=== PATIENT | female | born 1945 | race Caucasian/White ===

== ENCOUNTER 2021-12-27 09:01 | Outpatient (CLI) | payer MEDICARE, BC ==
[2021-12-27 11:37] LABS: Hemoglobin 13.9 g/dL (12.0-15.5)
[2021-12-27 12:00] LABS: Anion Gap 15 mmol/L (10-20); BUN (Urea Nitrogen) 19 mg/dL (9.8-20.1); Calc. Creatinine Clearance 0 mL/min (70-130); Calcium 9.5 mg/dL (7.8-10.44); Carbon Dioxide 24 mmol/L (23-31); Chloride 105 mmol/L (98-107); Estimated GFR 93; Glucose 114 mg/dL (83-110); Potassium 4.6 mmol/L (3.5-5.1); Sodium 139 mmol/L (136-145)
== END 2021-12-27 09:02 | disposition home or self-care (01) ==
LOC: CSHLAB 09:01
PROVIDERS: ATTEND Family Medicine
DX: Z01.818 Encounter for other preprocedural examination (principal)
CPT/HCPCS: 80048; 85014; 85018; 93005; 93010

== ENCOUNTER 2022-01-01 05:46 | Day surgery (SDC) | payer MEDICARE, BC ==
[2021-12-27 13:04] VITALS: BMI 31.4
[2022-01-01] MEDS ORDERED: Lidocaine 1% PF 5 ML VIAL ONE (06:54)
[2022-01-01] MEDS ORDERED: PROPOFOL 20 ML ONE ×2 (06:54→08:29)
[2022-01-01] MEDS ORDERED: Rocuronium Bromide 10 MG/ML (10ML VIAL) ONE (06:54)
[2022-01-01] MEDS ORDERED: Midazolam HCl 2 mg/2 ml Vial ONE (06:54)
[2022-01-01] MEDS ORDERED: Dexamethasone 20 MG/5 ML VIAL ONE (06:54)
[2022-01-01] MEDS ORDERED: Fentanyl 250 MCG/5 ML VIAL ONE (06:54)
[2022-01-01] MEDS ORDERED: Ondansetron PF 4 MG/2 ML Vial ONE (06:54)
[2022-01-01] MEDS ORDERED: CEFAZOLIN 1 GM VIAL ONE (07:03)
[2022-01-01] MEDS ORDERED: Lidocaine 1% w/Epinephrine 1:100K 20 ML VIAL ONE (07:27)
[2022-01-01] MEDS ORDERED: HYDROcodone/Acetaminophen 5/325 mg Tablet ONE (09:07)
== END 2022-01-01 09:52 | disposition home or self-care (01) ==
LOC: CSHSDC 05:46
PROVIDERS: ATTEND Otolaryngology Otolaryngic Allergy
PROC: 0GTH0ZZ Resection of Right Thyroid Gland Lobe, Open Approach (ICD-10-PCS; principal; 2022-01-01)
DX: C73 Malignant neoplasm of thyroid gland (principal); E04.1 Nontoxic single thyroid nodule; H81.12 Benign paroxysmal vertigo, left ear; H90.3 Sensorineural hearing loss, bilateral; Z79.899 Other long term (current) drug therapy; Z98.890 Other specified postprocedural states
CPT/HCPCS: 88307; J0690; J1100; J2250; J2405; J2704; J3010

== ENCOUNTER 2025-02-03 21:29 | Emergency (ER) | payer MEDICARE, BC ==
[2025-02-03] MEDS ORDERED: Ibuprofen 200 MG TAB ONE (23:22)
[2025-02-03] MEDS ORDERED: Boostrix 0.5 ML (Tdap) VIAL (>/=7 yrs of age) ONE (23:23)
[2025-02-03] MEDS ORDERED: Acetaminophen 500 MG TAB ONE (23:23)
== END 2025-02-04 00:35 | disposition home or self-care (01) ==
LOC: CSHERS 21:29
DX: S52.122A Displaced fracture of head of left radius, initial encounter for closed fracture (principal); E78.5 Hyperlipidemia, unspecified; E03.9 Hypothyroidism, unspecified; Z55.6 Problems related to health literacy; Z23 Encounter for immunization; Z79.899 Other long term (current) drug therapy; Z79.890 Hormone replacement therapy; W01.0XXA Fall on same level from slipping, tripping and stumbling without subsequent striking against object, initial encounter; Y93.01 Activity, walking, marching and hiking
CPT/HCPCS: 90471; 90715